=== PATIENT | male | born 1985 | race American Indian/Alaskan Native ===

== ENCOUNTER 2021-02-19 16:35 | Emergency (ER) | payer BC ==
[2021-02-19 18:37] VITALS: BP 120/76
[2021-02-19] MEDS ORDERED: dexAMETHasone 20 MG/5 ML VIAL IM ONE (18:39)
[2021-02-19] MEDS ORDERED: FAMOTIDINE 20 MG TAB PO ONE (18:39)
--- NOTE | 2021-02-19 20:01 | Emergency Department Report ---
ED Allergic Reaction HPI - General Chief complaint: Allergic Reaction Stated complaint: COLD Time Seen by Provider: 02/19/21 18:39 Source: patient Mode of arrival: Ambulatory Limitations: No Limitations - History of Present Illness Initial Comments: Patient is a 35-year-old male presents emergency room with complaints of an allergic reaction that occurred around 2 PM today. He states he was outside washing his car when he got stung or bit by something, he did not see anything. He states shortly after he began having facial swelling, diffuse urticaria, shortness of breath. He states he took 75 mg of Benadryl and his symptoms significantly improved. He states he just has some mild edema to his lips but otherwise the facial swelling has improved, he has no shortness of breath, he states that the rash resolved. He states he has no itching currently. He denies any difficulty swallowing. He states he has had a reaction like this previously after he got stung by something. He has no medication allergies. Past medical history sleep apnea. - Related Data Previous Rx's Medication Instructions Recorded Last Taken Type Amoxicillin/K Clav Tab [Augmentin 1 tab PO BID #20 tablet 05/15/14 05/16/14 Rx 875MG] Naproxen [Naprosyn] 250 mg PO BID PRN #20 tablet 05/15/14 05/16/14 Rx traMADoL [Ultram 50 MG tab] 50 mg PO Q6HR PRN #20 tablet 05/15/14 05/16/14 Rx Ondansetron [Zofran TAB] 4 mg PO Q8HR PRN #10 tablet 09/19/16 Unknown Rx Cetirizine HCl [Zyrtec 10mg tab] 10 mg PO DAILY #10 tablet 02/19/21 Unknown Rx Famotidine [Pepcid] 40 mg PO QHS #10 tablet 02/19/21 Unknown Rx diphenhydrAMINE [Benadryl CAP] 50 mg PO Q8HR PRN #20 capsule 02/19/21 Unknown Rx predniSONE [Deltasone] 40 mg PO QDAY 5 Days #10 tab 02/19/21 Unknown Rx Allergies Allergy/AdvReac Type Severity Reaction Status Date / Time No Known Allergies Allergy Unverified 05/15/14 21:27 ED Review of Systems ROS: Stated complaint: COLD Other details as noted in HPI Comment: All other systems reviewed and negative ED Past Medical Hx - Past Medical History Previous Medical History?: No Additional medical history: Sleep apnea with use of CPAP machine - Surgical History Past Surgical History?: No - Social History Smoking Status: Never Smoker Substance Use Type: None - Medications Home Medications: Home Medications Medication Instructions Recorded Confirmed Last Taken Type Amoxicillin/K Clav Tab [Augmentin 1 tab PO BID #20 tablet 05/15/14 05/17/14 05/16/14 Rx 875MG] Naproxen [Naprosyn] 250 mg PO BID PRN #20 tablet 05/15/14 05/17/14 05/16/14 Rx traMADoL [Ultram 50 MG tab] 50 mg PO Q6HR PRN #20 tablet 05/15/14 05/17/14 05/16/14 Rx Ondansetron [Zofran TAB] 4 mg PO Q8HR PRN #10 tablet 09/19/16 Unknown Rx Cetirizine HCl [Zyrtec 10mg tab] 10 mg PO DAILY #10 tablet 02/19/21 Unknown Rx Famotidine [Pepcid] 40 mg PO QHS #10 tablet 02/19/21 Unknown Rx diphenhydrAMINE [Benadryl CAP] 50 mg PO Q8HR PRN #20 capsule 02/19/21 Unknown Rx predniSONE [Deltasone] 40 mg PO QDAY 5 Days #10 tab 02/19/21 Unknown Rx ED Physical Exam - General Limitations: No Limitations General appearance: alert, in no apparent distress - Head Head exam: Present: atraumatic, normocephalic - Eye Eye exam: Present: normal appearance - ENT ENT exam: Present: mucous membranes moist, other (small amount of edema to the lips, no tongue edema, uvula is midline, no uvular edema or deviation) - Respiratory Respiratory exam: Present: normal lung sounds bilaterally. Absent: respiratory distress, wheezes, rales, rhonchi, stridor, chest wall tenderness, accessory muscle use, decreased breath sounds, prolonged expiratory - Cardiovascular Cardiovascular Exam: Present: regular rate, normal rhythm, normal heart sounds. Absent: systolic murmur, diastolic murmur, rubs, gallop - Neurological Exam Neurological exam: Present: alert, oriented X3 - Psychiatric Psychiatric exam: Present: normal affect, normal mood - Skin Skin exam: Present: warm, dry, other (small raised skin colored wheal present to the right upper arm). Absent: rash, urticaria ED Course Vital Signs 02/19/21 18:36 Temperature 98.9 F Pulse Rate 75 Respiratory 20 Rate Blood Pressure 120/76 O2 Sat by Pulse 100 Oximetry ED Medical Decision Making - Medical Decision Making Patient is a 35-year-old male presents emergency room with complaints of an allergic reaction that occurred around 2 PM today. He states he was outside washing his car when he got stung or bit by something, he did not see anything. He states shortly after he began having facial swelling, diffuse urticaria, shortness of breath. He states he took 75 mg of Benadryl and his symptoms significantly improved. He states he just has some mild edema to his lips but otherwise the facial swelling has improved, he has no shortness of breath, he states that the rash resolved. He states he has no itching currently. He denies any difficulty swallowing. He states he has had a reaction like this previously after he got stung by something. He has no medication allergies. Past medical history sleep apnea. vitals are normal. on exam: small amount of edema to the lips, no tongue edema, uvula is midline, no uvular edema or deviation, no stridor, small raised skin colored wheal present to the right u pper arm, no urticaria. pt given medications in the ED and was observed with no further complications. Given prescription for medications. Advised patient Please take medication as prescribed. Follow-up with your primary care doctor in the next few days for reexamination. Return to emergency room immediately for any new or worsening symptoms. Critical care attestation.: If time is entered above; I have spent that time in minutes in the direct care of this critically ill patient, excluding procedure time. ED Disposition Clinical Impression: Allergic reaction Qualifiers: Encounter type: initial encounter Qualified Code(s): T78.40XA - Allergy, unspecified, initial encounter Angioedema Qualifiers: Encounter type: initial encounter Qualified Code(s): T78.3XXA - Angioneurotic edema, initial encounter Disposition: - TO HOME OR SELFCARE Is pt being admited?: No Does the pt Need Aspirin: No Condition: Stable Instructions: Angioedema, [id number], Allergies, Adult, [id number] Additional Instructions: Please take medication as prescribed. Follow-up with your primary care doctor in the next few days for reexamination. Return to emergency room immediately for any new or worsening symptoms. Prescriptions: Famotidine [Pepcid] 40 mg PO QHS #10 tablet diphenhydrAMINE [Benadryl CAP] 50 mg PO Q8HR PRN #20 capsule PRN Reason: itching/swelling predniSONE [Deltasone] 40 mg PO QDAY 5 Days #10 tab Cetirizine HCl [Zyrtec 10mg tab] 10 mg PO DAILY #10 tablet Referrals: AROLDO CHOI MD [Primary Care Provider] - 2-3 Days Time of Disposition: 19:59 Print Language: THAI
== END 2021-02-19 20:01 | disposition home or self-care (01) ==
LOC: ED 16:35
DX: T78.40XA Allergy, unspecified, initial encounter (principal); T78.3XXA Angioneurotic edema, initial encounter; G47.30 Sleep apnea, unspecified; X58.XXXA Exposure to other specified factors, initial encounter
CPT/HCPCS: 96372; 99282; J1100